=== PATIENT | male | born 1970 | race Caucasian/White ===

== ENCOUNTER → 2024-06-05 | Outpatient (CLI) | payer BC ==
[2024-06-05 13:13] LABS: BILIRUBIN,TOTAL 0.8 mg/dL (0.2-1.0); POTASSIUM 4.3 mmol/L (3.5-5.1); TOTAL PROTEIN, SERUM 7.5 g/dL (6.0-8.3)
== END | disposition home or self-care (01) ==
LOC: LAB 09:17
PROVIDERS: ATTEND Student in an Organized Health Care Education/Training Program
DX: I50.22 Chronic systolic (congestive) heart failure (principal); E78.5 Hyperlipidemia, unspecified
CPT/HCPCS: 36415; 80053

== ENCOUNTER 2025-01-20 16:35 | Observation (INO) | payer BC ==
[~2025-01-20] VITALS: Ht 170.2 cm; Wt 120.1 kg
--- NOTE | 2025-01-20 16:51 | ERN ---
ED Note History of Present Illness Stated Complaint: DIZZINESS Chief Complaint: Dizzy/Light Headed Time Seen by MD: 16:37 Dictation: IS A 54-YEAR-OLD MALE STATES HE WAS SITTING IN THE RECLINING CHAIR WITH HIS AND FAMILY EARLIER TODAY WHEN HE HAD A SUDDEN EPISODE OF SYNCOPE. HE STATES HE REMEMBERS THAT THE ROOM STARTED GOING DARK AND HE DOES NOT REMEMBER ANYTHING ELSE. THE STATES HE WAS SITTING IN THE RECLINER WHEN HE ROLLED HIS ICE BACK AND FELL BACK IN THE CHAIR FOR A FEW SEC. BOTH STATE THAT THEY THINK HIS DEFIBRILLATOR WENT OFF AND PATIENT HAD SPONTANEOUS ROS. CURRENTLY ALERT AND ORIENTED X4 SPEECH IS CLEAR. STATES HE HAS A PATIENT DR. ALANNAH HERNANDEZ. STATES HE HAS A AN EJECTION FRACTION OF [id number] AND 20%. NIH IS 0 AT THIS TIME. Allergies: Coded Allergies: No Known Allergies (Unverified Allergy, Unknown, 01/20/25) Past Medical History Past Medical History: High Cholesterol, Hypertension Surgical History: Other RN Note Reviewed/Agreed w/PFSH: Yes Review of System Dictation CONSTITUTIONAL: NEGATIVE EXCEPT FOR HPI HEAD/FACE: NEGATIVE EXCEPT FOR HPI EENT: NEGATIVE EXCEPT FOR HPI RESPIRATORY: NEGATIVE EXCEPT FOR HPI GASTROINTESTINAL/ABDOMINAL: NEGATIVE EXCEPT FOR HPI GENITOURINARY: NEGATIVE EXCEPT FOR HPI MUSCULOSKELETAL: NEGATIVE EXCEPT FOR HPI INTEGUMENTARY: NEGATIVE EXCEPT FOR HPI NEUROLOGICAL/PSYCH: NEGATIVE EXCEPT FOR HPI SYNCOPE HEMATOLOGIC/LYMPHATIC: NEGATIVE EXCEPT FOR HPI ALL SYSTEMS NEGATIVE, EXCEPT NOTED ABOVE. 13 POINT REVIEW OF SYSTEMS ASSESSED AND ALL NEGATIVE EXCEPT FOR ABOVE. Initial Vital Sign VS Vital Signs Date Time Temp Pulse Resp B/P (MAP) Pulse Ox O2 Delivery O2 Flow Rate FiO2 01/20/25 16:36 99.0 72 18 114/49 99 Room Air 01/20/25 18:00 0 21 Physical Exam Dictation VITAL SIGNS REVIEWED GENERAL APPEARANCE: ALERT, ORIENTED X 3, NO ACUTE DISTRESS, WELL DEVELOPED, NOURISHED. HEAD AND FACE: NON-TRAUMATIC. EYES: PERRL, PINK CONJUNCTIVAS, EYELID NO TRAUMA, ANTERIOR CHAMBER WITH ARCUS SENILIS. EARS: PINNAS INTACT AND NO SIGNS OF TRAUMA OR ERYTHEMA EAR CANALS CLEAR AND NO DISCHARGE TM NO ERYTHEMA NOSE: NO DISCHARGE, NO BLEEDING. OROPHARYNX: MOUTH NORMAL, TONGUE PINK, PHARYNX CLEAR,NO ERYTHEMA, TONSILS NO EXUDATES, NO ABSCESSES NOTED, MUCOUS MEMBRANE MOIST NECK: SUPPLE, NON-TENDER, NO THYROMEGALY, NO MASSES, NO JVD, NO BRUITS BREAST:DEFERRED CHEST:NO TENDERNESS, NO CREPITUS, NO PARADOXICAL MOVEMENT, NO RETRACTIONS LUNGS:CLEAR, WELL-VENTILATED, SYMMETRIC, NO RALES, NO WHEEZING, NO RHONCHI, NO STRIDOR, GOOD BREATH SOUNDS BILATERALLY HEART: REGULAR RATE, REGULAR RHYTHM, NO MURMUR, NO GALLOPS VASCULAR: TRACE PERIPHERAL EDEMA, ABDOMEN: SOFT, POSITIVE BOWEL SOUNDS, NONDISTENDED, NO GUARDING, NONTENDER, NO REBOUND, NO MASSES NO HEPATOMEGALY, NO SPLENOMEGALY, NO ALVAREZ'S SIGN, NO HERNIAS. RECTAL: DEFERRED GENITAL: DEFERRED NEUROLOGICAL: NORMAL SPEECH, MOTOR FUNCTION INTACT, SENSORY FUNCTION INTACT NIH IS 0 MUSCULOSKELETAL: NECK NONTENDER, FULL RANGE OF MOTION, BACK NONTENDER, FULL RANGE OF MOTION, EXTREMITIES: NONTENDER, FULL RANGE OF MOTION SKIN: COLOR PINK, DRY, NO TURGOR, NO RASH, NO LACERATIONS, NO ABRASIONS, NO CONTUSIONS. LYMPHATIC: DEFERRED Results (Laboratory/Radiology) Laboratory/Radiology Laboratory Tests Test 01/20/25 17:34 White Blood Count 8.4 K/uL (4.8-10.8) Red Blood Count 5.01 MIL/uL (4.50-6.20) Hemoglobin 14.9 g/dL (14.0-18.0) Hematocrit 46.0 % (42-54) Mean Corpuscular Volume 91.8 fL (79-99) Mean Corpuscular Hemoglobin 29.7 pg (27.0-33.0) Mean Corpuscular Hemoglobin Concent 32.4 g/dL (32.0-36.0) Red Cell Distribution Width 13.3 % (11.0-15.5) Platelet Count 199 K/uL (130-400) Mean Platelet Volume 10.0 fL (7.5-10.5) Immature Granulocyte % (Auto) 0.1 % (0-1) Neutrophils (%) (Auto) 81.0 % (40.0-77.0) H Lymphocytes (%) (Auto) 11.3 % (21.0-51.0) L Monocytes (%) (Auto) 6.9 % (3.0-13.0) Eosinophils (%) (Auto) 0.2 % (0.0-8.0) Basophils (%) (Auto) 0.5 % (0.0-5.0) Neutrophils # (Auto) 6.8 K/uL (1.8-7.7) Lymphocytes # (Auto) 1.0 K/uL (1.0-4.8) Monocytes # (Auto) 0.6 K/uL (0.1-1.0) Eosinophils # (Auto) 0.02 K/uL (0.00-0.70) Basophils # (Auto) 0.04 K/uL (0.00-0.20) Absolute Immature Granulocyte (auto 0.01 K/uL (0-1) Nucleated Red Blood Cells 0.0 % (0.0-0.19) Sodium Level 137 mmol/L (136-145) Potassium Level 3.9 mmol/L (3.5-5.1) Chloride Level 102 mmol/L (101-111) Carbon Dioxide Level 24 mmol/L (21-32) Blood Urea Nitrogen 17 mg/dL (7-18) Creatinine 0.7 mg/dL (0.5-1.3) Glomerular Filtration Rate Calc 108 mL/min (>90) Random Glucose 95 mg/dL (70-105) Total Calcium 9.0 mg/dL (8.5-10.1) Magnesium Level 2.30 mg/dL (1.80-2.40) Troponin I High Sensitivity 24 ng/L (4-75) B-Type Natriuretic Peptide 717 pg/mL (0-100) H Labs Reviewed?: Yes EKG Comment: 1650/EKG sinus rhythm with first-degree AV block/heart rate 63/left atrial enlargement/left ventricular conduction delay in multiple leads ED Course ED Course Orders Procedure Category Date Status Time B-Type Natriuretic LAB 01/20/25 Complete Peptide 16:42 Cbc With Differential LAB 01/20/25 Complete 16:42 Chest 1vw RAD 01/20/25 Resulted 16:42 12 Lead Ekg Tracing- EKG 01/20/25 Logged Technical 16:42 Magnesium LAB 01/20/25 Complete 16:42 Troponin I High LAB 01/20/25 Complete Sensitivity 16:42 Basic Metabolic Panel LAB 01/20/25 Complete 16:42 Pacemaker CPOE 01/20/25 Transmitted Interrogation (Er) 16:42 Cardiology Consult CONPHYSVC 01/20/25 Transmitted 21:39 Admit Orders ADM 01/20/25 Transmitted 21:39 Vital Signs Date Time Temp Pulse Resp B/P (MAP) Pulse Ox O2 Delivery O2 Flow Rate FiO2 01/20/25 21:11 57 16 110/52 96 Room Air* 0 21 01/20/25 19:56 62 18 107/51 96 Room Air* 0 21 01/20/25 18:00 97.9 62 12 109/61 96 Room Air* 0 21 01/20/25 16:36 99.0 72 18 114/49 99 Room Air 1858/SPOKE WITH PATIENT IN HIS AT LENGTH REGARDING CLINICAL FINDINGS TO DATE. THEY ARE BOTH AWARE THAT PATIENT'S DEFIBRILLATOR HAS BEEN INTERROGATED IN HIS SHOWED SEVERAL EVENTS WE WILL BE IN TOUCH WITH [employer] BILLING ANALYST FOR TIMES AND DATES. THEY BOTH FELT THAT THEY DID NOT NEED A CT OF THE HEAD AT THIS TIME BECAUSE THEY THOUGHT IT WAS A MONEY GRAB. I ADVISED BOTH OF THEM THAT WITH THE LOSS OF CONSCIOUSNESS AND THE NEUROLOGIC/CARDIAC EVENT THAT OCCURRED WITHOUT A MONITOR THAT I COULD NOT EXPLAIN WHAT IT HAPPENED TM AT THE TIME HE HAD THE SYNCOPAL EPISODE AND LOSS OF CONSCIOUSNESS. PATIENT STATES HE DOES NOT WANT A CT AT THIS TIME UNLESS IN HIS INDICATED BY HIS [employer]EN[employer] POLISHER'S. I ADVISED HIM THAT WE WOULD WAIT UNTIL THE INTERROGATION WAS COMPLETE AND THE REPORT RETURNED FROM [employer] PATIENT REMAINS ALERT AND ORIENTED X4 SPEECH IS CLEAR. NIH IS 0. 1955/CALLED AND SPOKE WITH THE [employer] CALL CENTER AT 18:00 [phone] LEFT MESSAGE TO HAVE COMMUNICATIONS BILLING ANALYST CALL BACK REGARDING THE REPORT FROM THE INTERROGATION. 1957/SPOKE WITH PAU BOWEN/[employer] AND HE IS ABOUT 5-7 MINUTES AWAY FROM THE HOSPITAL AND WE WILL STOP INTO SEE PATIENT. 8:00 p.m. patient was signed out to me by mid-level provider-Yusef This is a 54-year-old male with a dilated cardiomyopathy ejection fraction of 15-20% status post AICD followed by Dr. Alannah hernandez marketing summer intern, presented to the emergency room with his with a transient episode of syncope without warning and the AICD shocked him with a quick recovery. By the time the patient came to the ER his vital signs were stable he was alert awake and oriented x4. Patient and spouse stated that his coronaries were normal and his cardiomyopathy was felt to be perhaps related to chronic hypoxemia and untreated JIMY[facility] rep has a interrogated his AICD and there was an evidence of episode of ventricular fibrillation and the AICD appropriately shocked him with the return of normal rhythm. I discussed with the Dr. Alvarado and she recommended antiarrhythmic. In review of patient's medications patient is already on metoprolol. And I had a long discussion with the patient and his and probably his medications needing to be adjusted by marketing summer intern and they agreed to admission to the hospital As the patient has already taken his metoprolol today, and his EKG shows first- degree heart block as well as intraventricular conduction delay and an extremely low voltage EKG {I do not have any old EKG to compare at this time}, if he has any recurrence tonight, reasonable to give him a dose of amiodarone. Patient accepted by Danielito Briones, mid-level provider for hospitalist group for admission and further management Extensive counseling done on 3. Compliance with home oxygen and BiPAP, sleep hygiene discussed avoidance of benzodiazepines and other sleep aids that would suppress respirations. The importance of compliance with PAP therapy and benefits of improved sleep consolidation quality of sleep, reducing the risks of stroke cardiac disease and comorbidities. Negative consequences also discussed. 4. Weight loss diet and exercise -as per cardiology recommendations; stressed and education done. 5. Smoking cessation and toxic effects of tobacco and complications associated with worsening lung disease, incidents of lung cancer and other cancers cardiac arrest and . 6. Stop alcohol and resources for withdrawal and abstinence with addiction medicine offered. 7. Regular followups. HEART Score Response (Comments) Value EKG: Repolarization changes 1 Age: 45-65yrs (+1) 1 Risk Factors: 3+ risk factors (+2) 2 Initial Troponin: Normal limit (0) 0 Total 4 Medical Decision Making MDM Differential diagnosis: Ventricular tachycardia, ventricular fibrillation, appropriate AICD shock versus inappropriate AICD shock, new coronary event, congestive heart failure decompensated Rationale: Tests considered and ordered secondary to shared decision making include: labs, ECG and radiology Previous outside records reviewed: Old ER visits. Risk of complication and/or morbidity or mortality of patient management: None Medications-Per medication reconciliation Need for hospitalization: Patient does meet criteria for hospitalization. Need for emergency major/minor surgery: No There are no social concerns with this patient. Prescription drug management Prescriptions will include symptomatic care Patient's prior external medical records from other ER visits were reviewed by me as indicated. Prior testing and results from previous visits were reviewed. Prior tests were taken into account with medical decision making and resource utilization, independent historian/historians were used to obtain complete medical history. I independently interpreted the test that were performed, results were reviewed by me and considered findings on radiology if ordered. Medical management and examination interpretation discussions were had by me with other qualified healthcare professionals as indicated for the patient's care. DX & DISP Disposition: Inpatient Departure Impression: Primary Impression: Ventricular fibrillation Additional Impressions: AICD (automatic cardioverter/defibrillator) present, Syncope, Idiopathic cardiomyopathy, Obstructive sleep apnea not treated with continuous positive airway pressure (CPAP), Non-compliance Condition: Stable Additional Instructions: Patient was informed of all the diagnostic labs and procedures conducted in the emergency room today and demonstrated understanding of the results. I personally reviewed and interpreted all the diagnostic exams performed in the ER today. The patient will be admitted to the hospital for further treatment and evaluation. Disposition-admit to facility Condition-stable/guarded Course-uncertain at this time Pain status-decreased Assessment-exam unchanged Admission Certification- I certify that the patients status is appropriate and is based on my best clinical judgment and the patient's condition as documented in the medical records Referrals: ALANNAH RAMIREZ MD (PCP) YUSEF FARRAR Jan 20, 2025 16:51 LILY CRUZ MD Jan 20, 2025 22:12
[2025-01-20 17:44] LABS: IMMATURE GRANULOCYTE ABSOLUTE 0.01 K/uL (0-1); NUCLEATED RED BLOOD CELLS 0.0 % (0.0-0.19); PLATELET COUNT (AUTO) 199 K/uL (130-400); RED BLOOD CELL COUNT(AUTO) 5.01 MIL/uL (4.50-6.20); RED CELL DISTRIBUTION WIDTH 13.3 % (11.0-15.5); WHITE BLOOD COUNT (AUTO) 8.4 K/uL (4.8-10.8)
[2025-01-20 18:08] LABS: CREATININE 0.7 mg/dL (0.5-1.3); GLOMERULAR FILTR. RATE CALC 108.0 mL/min (>90); GLUCOSE,RANDOM 95.0 mg/dL (70-105); SODIUM SERUM 137.0 mmol/L (136-145); UREA NITROGEN, BLOOD 17.0 mg/dL (7-18)
--- NOTE | 2025-01-20 18:30 | NUR ---
[employer] DEVICE INTEROGATED
--- NOTE | 2025-01-20 18:58 | HMCIMG ---
EXAM: CR Chest, 1 View. CLINICAL HISTORY: SHORTNESS A BREATH COMPARISON: None provided. FINDINGS: LUNGS: The lungs show no infiltrate or other acute finding. PLEURAL SPACES: No pleural effusion or pneumothorax. MEDIASTINUM: The cardiomediastinal silhouette is within normal limits. Pacemaker lead is in satisfactory position. BONES: No aggressive appearing osseous lesion seen. IMPRESSION: No acute cardiopulmonary pathology is evident. /[place]
--- NOTE | 2025-01-20 21:10 | NUR ---
MD and family at bedside.
--- NOTE | 2025-01-20 21:40 | HP ---
History of Present Illness Reason for Visit: dizziness History of Present Illness Mr. Cantu is a 54-year-old male that was seen and examined today on 01/20/2025. Patient is a good historian of personal health Patient reports that he came to the emergency department with a chief complaint of dizziness. Onset was today at 3:00 p.m.. Location is head. Duration is on and off. Patient reports one episode. Character is described as if everything was getting dark. There was no aggravating factors. Symptoms occurred while patient was sitting down in a chair. Symptoms were alleviated when getting shocked by his AICD. Patient denies any associated chest pain or shortness and breath. Today in the emergency department CBC unremarkable, chemistry unremarkable, BNP 717, no urinalysis has been collected or sent to lab, chest x-ray is unremarkable. Patient's device was interrogated by [employer] computer help desk representative who states that patient had a VFib episode which has since resolved after defibrillation. Emergency room physician contacted patient's butcher helper who recommended patient be admitted in the we will be following this case to adjust patient's home medications. Past Medical History ADDITIONAL PAST MEDICAL HISTORY: [CHF] SOCIAL HISTORY: [Negative for smoking, alcohol use, drug use. Patient lives with the , Nila Cantu. Patient is typically independent of his ADLs. Patient denies difficulty pain is bills] SURGICAL HISTORY: [Bilateral hip surgery, AICD, colon resection secondary to d iverticulitis] Review of Systems General: No Fever, No Chills, No Night Sweats, No Fatigue, No Malaise, No Appetite, No Other HEENT: No Head Aches, No Visual Changes, No Eye Pain, No Ear Pain, No Dys phasia, No Sinus Congestion, No Post Nasal Drip, No Sore Throat, No Other Pulmonary: No Dyspnea, No Cough, No Pleuritic Chest Pain, No Other Cardiovascular: Lt Headedness; No: Chest Pain, Palpitations, Orthopnea, Paroxysmal Noc. Dyspnea, Edema, Other Gastrointestinal: No: Nausea, Vomiting, Abdominal Pain, Diarrhea, Constipation, Melena, Hematochezia, Other Genitourinary: No Dysuria, No Frequency, No Incontinence, No Hematuria, No Retention, No Other Musculoskeletal: No: other, neck pain, shoulder pain, arm pain, back pain, hand pain, leg pain, foot pain Skin: No Urticaria, No Rash, No Other Neurological: No: Weakness, Numbness, Incoordination, Change in speech, Confusion, Seizures, Other Allergies: Coded Allergies: No Known Allergies (Unverified Allergy, Unknown, 01/20/25) Scheduled Aspirin (Aspirin 81MG Chew Tab), 1 TAB PO DAILY, (Reported) Atorvastatin Calcium (Atorvastatin Calcium), 1 TAB PO HS, (Reported) Dronedarone Hydrochloride (Multaq), 1 TAB PO BID, (Reported) Empagliflozin (Jardiance), 1 TAB PO DAILY, (Reported) Ezetimibe (Ezetimibe), 1 TAB PO DAILY, (Reported) Icosapent Ethyl (Vascepa), 2 CAP PO BID, (Reported) Metoprolol Succinate (Metoprolol Succinate), 1 TAB PO DAILY, (Reported) Sacubitril/Valsartan (Entresto 24 mg-26 mg Tablet), 1 TAB PO BID, (Reported) Spironolactone (Spironolactone), 1 TAB PO DAILY, (Reported) Ubidecarenone (Coq-10), 200 MG PO DAILY, (Reported) Vitamin B Complex (Vitamin B Complex), 1 CAP PO BID, (Reported) Exam Vital Signs Vital Signs Date Time Temp Pulse Resp B/P (MAP) Pulse Ox O2 Delivery O2 Flow Rate FiO2 01/20/25 21:11 57 16 110/52 96 Room Air* 0 21 01/20/25 18:00 97.9 General Appearance: Alert, Oriented X3, Cooperative, No acute distress HEENT: Atraumatic, EOMI Respiratory: Clear to auscultation, Normal air movement, NL respiratory effort Cardiovascular: Normal S1, Normal S2, Other (S3) Abdominal: No tenderness Extremities: No clubbing, No cyanosis, No edema Skin: No rashes, No breakdown, No significant lesion Neuro: Normal gait, Normal speech, Strength at 5/5 X4 ext, Sensation intact, Cranial nerves 3-12 NL Psych/Mental Status: Mental status NL, Mood NL, Thoughts/Content NL Assessment/Plan ASSESSMENT: [ VFib episode, POA CHF with stated EF of 20%, POA PLAN: [ Admit patient to pccu as inpatient status. Place patient on telemetry monitoring. Patient will be followed by cardiology service. For now we will be starting metoprolol 12.5 mg by mouth twice daily Administer metoprolol 5 mg IV every 5 minutes as needed for AFib RVR with heart rate greater than 120 beats per minute max three doses. Monitor intake and output every shift Weight patient daily 1500 mL daily fluid restriction Lasix 20 mg by mouth twice daily Consider resuming home medications once they have been reconciled. GI prophylaxis, famotidine DVT prophylaxis, Lovenox ADVANCED CARE PLANNING 1. Which of the following were discussed? Hospice Care - Yes Therapeutic options - yes Advance Directives - Yes - patient states he does not have any advance directives in place at this time, however his can make decisions for him if he becomes unable. Other discussions - patient wishes to remain a full code at this time 2. Discussed with who? Patient 3. Voluntary nature of this service was explained to the patient? Yes 4. Amount of time spent - ___16 minutes____ 5. Reviewed by Physician? (if this service was performed by NPP) Yes This document was generated in part using voice recognition software, occasional wrong word or sound alike substitutions may have occurred due to the inherent limitations of voice recognition software. Read the chart carefully and recognize using context, where the substitutions have occurred. Although every effort was made to edit the content, slag motor operator and typing errors may occur ATTESTATION BY PHYSICIAN I have seen and examined the patient. I reviewed the documentation, medical decision making, and treatment plan as noted by the mid-level provider above. I agree with the findings and plan of care. ] ELI PEREZ [facility] Jan 20, 2025 21:40
[2025-01-20] MEDS ORDERED: PHARMACY COMMUNICATION MISC SCH (22:30)
[2025-01-20] MEDS ORDERED: LACTULOSE 20 GM/30 ML UDCUP PO PRN (22:30)
[2025-01-20 23:58] LABS: APPEARANCE,URINE CLEAR (CLEAR); GLUCOSE, URINE (UA) >=1000 mg/dL (NEGATIVE); LEUKOCYTE ESTERASE ,URINE NEGATIVE Leu/uL (NEGATIVE); NITRATE,URINE NEGATIVE (NEGATIVE); OCCULT BLOOD,URINE NEGATIVE (NEGATIVE)
[2025-01-20 23:59] LABS: ADD UA MICROSCOPIC YES
[2025-01-21] VITALS (7 sets, daily range): BP systolic 93–161; BP diastolic 44–98; PULSE 56–77; RESP 18–21; TEMP 97.7–98.5; O2SAT 96
[2025-01-21] MEDS ORDERED: SACU1TAB PO (00:07)
[2025-01-21] MEDS ORDERED: EZET10TA80 PO (00:07)
[2025-01-21] MEDS ORDERED: ASPI-1005 PO (00:07)
[2025-01-21] MEDS ORDERED: EMPA10TA PO (00:07)
[2025-01-21] MEDS ORDERED: VITA1CAP85 PO (00:07)
[2025-01-21] MEDS ORDERED: METO-391 PO (00:07)
[2025-01-21] MEDS ORDERED: SPIR25TA6 PO (00:07)
[2025-01-21] MEDS ORDERED: UBID100C51 PO (00:07)
[2025-01-21] MEDS ORDERED: ATOR40TA71 PO (00:07)
[2025-01-21] MEDS ORDERED: ICOS1CAP PO (00:07)
[2025-01-21] MEDS ORDERED: DRON400T7 PO (00:07)
[2025-01-21] MEDS: SACUBITRIL/VALSARTAN 1 EACH TABLET PO ONE (01:38)
[2025-01-21] MEDS: DRONEDARONE HYDROCHLORIDE 400 MG TABLET PO ONE (01:39)
[2025-01-21] MEDS ORDERED: [UNRECOGNIZED DRUG - OTHER] IM ONE (03:30)
--- NOTE | 2025-01-21 03:36 | NUR ---
Flu Vaccine Patient request vaccine to be administered after breakfast, patient education hand out left with patient. Patient has no questions at this time.
[2025-01-21 08:12] LABS: IMMATURE GRANULOCYTE ABSOLUTE 0.02 K/uL (0-1); NUCLEATED RED BLOOD CELLS 0.0 % (0.0-0.19); PLATELET COUNT (AUTO) 210 K/uL (130-400); RED BLOOD CELL COUNT(AUTO) 5.11 MIL/uL (4.50-6.20); RED CELL DISTRIBUTION WIDTH 13.7 % (11.0-15.5); WHITE BLOOD COUNT (AUTO) 6.3 K/uL (4.8-10.8)
[2025-01-21 08:23] LABS: CREATININE 0.7 mg/dL (0.5-1.3); GLOMERULAR FILTR. RATE CALC 108.0 mL/min (>90); GLUCOSE,RANDOM 94.0 mg/dL (70-105); PHOSPHORUS 4.8 mg/dL (2.5-4.9); SODIUM SERUM 137.0 mmol/L (136-145); UREA NITROGEN, BLOOD 12.0 mg/dL (7-18)
[2025-01-21] MEDS: ENOXAPARIN SODIUM 40 MG/0.4 ML SYRINGE SQ SCH (09:23)
[2025-01-21] MEDS: SACUBITRIL/VALSARTAN 1 EACH TABLET PO SCH (09:23)
[2025-01-21] MEDS: SPIRONOLACTONE 25 MG TAB PO SCH (09:24)
[2025-01-21] MEDS: FAMOTIDINE 20MG TAB PO SCH (09:24)
--- NOTE | 2025-01-21 12:42 | PN ---
[facility] PROGRESS NOTE Date of Service: Jan 21, 2025 Time of Service: 12:42 SUBJECTIVE: [ ] 01/21/2025: The patient was seen and evaluated bedside along with Dr. Pal and Dr. Rodriguez this morning. The patient is awake, alert, oriented x3, saturating 99% at room air. The patient said that he had episode of syncope yesterday for about a minute. Yesterday in ED, the device was interrogated by [employer] software support representative who stated that patient had a VFib episode getting shocked by his AICD. ED physician contacted patient's car manager who recommended patient be admitted for further evaluation. The patient said he is doing good this morning, denies chest pain, shortness of breath, palpitation, dizziness overnight. Morning labs were unremarkable except for elevated BNP 717. Plan of care was discussed with his over phone in presence of patient by Dr. Rodriguez for which patient and his agreed. We will plan for discharge after getting clearance from Cardiology. Nurse called around 6:30 p.m. on 01/21/2025 and informed that patient wants to leave against medical advice. Patient signed out against medical advice from the room. As per the primary nurse, the patient does not wish to continue any treatment at this time and is refusing to stay and complete evaluation and disposition. The patient is fully aware of all risks and benefits of leaving against medical advice. Possible benefits include correction of the current medical condition and improvement of symptoms. However the patient was advised that possible risk of leaving against medical advice include worsening of the current medical condition, including or causing that. The Patient verbalized understanding of the risk and benefits discussed. Despite this the patient signed out against medical advice. REVIEW OF SYSTEMS CONSTITUTIONAL: Denies fevers, chills, or night sweats. No unintentional weight loss reported. NEUROLOGICAL: Denies headache, amaurosis fugax, motor weakness, sensory deficit, vertigo/spinning sensation, gait abnormalities, or tremors. ENT: No hearing loss, otalgia, otorrhea, rhinitis, rhinorrhea, hoarseness, or sore throat. CARDIOVASCULAR: Denies any exertional angina, dyspnea on exertion, orthopnea, paroxysmal nocturnal dyspnea, palpitations, life-threatening arrhythmias, claudication. PULMONARY: Denies any shortness of breath, cough, phlegm/sputum, hemoptysis, pleuritic chest pain. SLEEP: Denies morning headaches, daytime somnolence or napping. Denies difficulty falling asleep, staying asleep, waking from sleep. Denies knowledge of snoring. GASTROINTESTINAL: Denies any type of dysphagia to either liquids or solids. Denies nausea, vomiting, pyrosis, early satiety, abdominal pain, diarrhea, constipation, or changes in stool consistency or caliber. Denies coffee-ground emesis, hematemesis, hematochezia, or melanotic stools. GENITOURINARY: Denies frequency, urgency, nocturia, hematuria or incontinence (Storage/Irritative symptoms.) Low urinary stream, straining to void, urinary intermittency or hesitancy, splitting of the voiding stream, terminal dribbling. ENDOCRINOLOGIC: Denies polyuria, polydipsia, polyphagia or heat/cold intolerances. HEMATOLOGIC: Denies thrombophilia/previous clots, or coagulopathy/bleeding disorders. ONCOLOGIC: Denies personal history of malignancy. DERMATOLOGIC: Denies rashes or pruritus. PSYCHIATRIC: Denies any suicidal or homicidal ideation. Denies hallucinations. PHYSICAL EXAM GENERAL APPEARANCE: The patient is awake, alert, and oriented, in no acute cardiopulmonary distress. NEUROLOGICAL: Cranial nerves II-XII grossly intact. Motor is 5/5 in bilateral upper and lower extremities proximal to distal. No sensory deficits. HEENT: Face is symmetric. Pupils are equal and reactive. Extraocular movements are intact. NECK: Supple. No JVD. No thyromegaly. No submental, submandibular, pre- /postauricular, occipital or supraclavicular lymphadenopathy. CHEST: Normal chest expansion. No Telemetry. LUNGS: Absence of any rales, rhonchi or any wheezing. CARDIOVASCULAR: Regular. S1 and S2 normal. No appreciable rubs, murmurs or gallops. ABDOMEN: Soft, nontender, and nondistended. There is no rebound, voluntary guarding, or rigidity. : Deferred. No Rosa. EXTREMITIES: Non-edematous and not cyanotic. No clubbing. Good capillary refill. SKIN: No skin breakdown. Vital Signs (last 8hr) Date Time Temp Pulse Resp B/P (MAP) Pulse Ox O2 Delivery O2 Flow Rate FiO2 01/21/25 12:13 98.4 60 18 101/55 95 Room Air 01/21/25 08:00 96 Room Air* 0 21 01/21/25 07:56 98.2 56 18 93/54 99 Room Air LABS: Laboratory: Test 01/21/25 07:41 01/20/25 23:35 01/20/25 17:34 Range/Units White Blood Count 6.3 4.8-10.8 K/uL Red Blood Count 5.11 4.50-6.20 MIL/uL Hemoglobin 15.0 14.0-18.0 g/dL Hematocrit 47.2 42-54 % Mean Corpuscular Volume 92.4 79-99 fL Mean Corpuscular Hemoglobin 29.4 27.0-33.0 pg Mean Corpuscular Hemoglobin Concent 31.8 L 32.0-36.0 g/dL Red Cell Distribution Width 13.7 11.0-15.5 % Platelet Count 210 130-400 K/uL Mean Platelet Volume 10.2 7.5-10.5 fL Immature Granulocyte % (Auto) 0.3 0-1 % Neutrophils (%) (Auto) 69.7 40.0-77.0 % Lymphocytes (%) (Auto) 19.5 L 21.0-51.0 % Monocytes (%) (Auto) 9.2 3.0-13.0 % Eosinophils (%) (Auto) 0.8 0.0-8.0 % Basophils (%) (Auto) 0.5 0.0-5.0 % Neutrophils # (Auto) 4.4 1.8-7.7 K/uL Lymphocytes # (Auto) 1.2 1.0-4.8 K/uL Monocytes # (Auto) 0.6 0.1-1.0 K/uL Eosinophils # (Auto) 0.05 0.00-0.70 K/uL Basophils # (Auto) 0.03 0.00-0.20 K/uL Absolute Immature Granulocyte (auto 0.02 0-1 K/uL Nucleated Red Blood Cells 0.0 0.0-0.19 % Sodium Level 137 136-145 mmol/L Potassium Level 4.6 3.5-5.1 mmol/L Chloride Level 100 L 101-111 mmol/L Carbon Dioxide Level 29 21-32 mmol/L Blood Urea Nitrogen 12 7-18 mg/dL Creatinine 0.7 0.5-1.3 mg/dL Glomerular Filtration Rate Calc 108 >90 mL/min Random Glucose 94 70-105 mg/dL Total Calcium 9.1 8.5-10.1 mg/dL Phosphorus Level 4.8 2.5-4.9 mg/dL Magnesium Level 2.20 1.80-2.40 mg/dL Urine Color YELLOW YELLOW Urine Appearance CLEAR CLEAR Urine pH 5.5 5.0-8.0 Urine Specific [place] 1.034 H 1.001-1.031 Urine Protein NEGATIVE NEGATIVE mg/dL Urine Glucose (UA) >=1000 H NEGATIVE mg/dL Urine Ketones 5 H NEGATIVE mg/dL Urine Occult Blood NEGATIVE NEGATIVE Urine Nitrate NEGATIVE NEGATIVE Urine Bilirubin NEGATIVE NEGATIVE mg/dL Urine Urobilinogen 0.2 0.2-1.0 mg/dL Urine Leukocyte Esterase NEGATIVE NEGATIVE Carole/uL Urine RBC 2-5 H 0-1 /HPF Urine WBC 0-1 0-1 /HPF Urine Bacteria RARE None Seen /HPF Troponin I High Sensitivity 24 4-75 ng/L B-Type Natriuretic Peptide 717 H 0-100 pg/mL Current Medications Medications (Trade) Dose Ordered Sig/Carol Route PRN Reason Start Time Stop Time Status Last Admin Dose Admin Acetaminophen (TYLenol 325MG TAB) 650 mg Q6H PRN PO TEMPERATURE GREATER THAN 101.5 01/20/25 22:30 02/19/25 22:29 Atorvastatin Calcium (LIPItor 40MG) 40 mg HS PO 01/21/25 21:00 01/21/25 02:03 DC Enoxaparin Sodium (Lovenox) 40 mg DAILY SQ 01/21/25 09:00 02/20/25 08:59 01/21/25 09:23 40 MG Famotidine (Pepcid 20mg Tab) 20 mg DAILY PO 01/21/25 09:00 02/20/25 08:59 01/21/25 09:24 20 MG Furosemide (LASix 20MG TAB) 20 mg BID@,17 PO 01/21/25 09:00 01/21/25 02:04 DC Hydralazine HCl (APRESOLine 20MG INJ) 10 mg Q6H PRN IV For:SBP above 160;DBP above 90 01/20/25 22:30 02/19/25 22:29 Lactulose (Constulose 20gm/ 30ml Udcup) 20 gm BID PRN PO CONSTIPATION 01/20/25 22:30 02/19/25 22:29 Metoprolol Succinate (TopROL XL) 50 mg DAILY PO 01/21/25 09:00 02/20/25 08:59 01/21/25 09:23 50 MG Metoprolol Tartrate (loprESSOR) 5 mg Q5MIN PRN IV AFIB RVR WITH HR >120BPM 01/20/25 22:30 Metoprolol Tartrate (loprESSOR) 12.5 mg BID PO 01/21/25 09:00 01/21/25 01:38 DC Morphine Sulfate (morPHINE 2MG SYG) 2 mg Q4H PRN IVP SEVERE PAIN (7-10) 01/20/25 22:30 01/27/25 22:29 Ondansetron HCl (zoFRAN 4MG INJ) 4 mg Q6H PRN IV NAUSEA/VOMITING 01/20/25 22:30 02/19/25 22:29 Pharmacy Profile Note (Pharmacy Communication) 1 each ONCE MISC 01/20/25 22:30 01/20/25 22:27 DC Sacubitril/ Valsartan (Entresto 24 Mg-26 Mg Tablet) 1 each BID PO 01/21/25 09:00 02/20/25 08:59 01/21/25 09:23 1 EACH Spironolactone (Aldactone 25mg) 25 mg DAILY PO 01/21/25 09:00 02/20/25 08:59 01/21/25 09:24 25 MG DIAGNOSTICS / RADIOLOGY: [ ] [place] [address] IMAGING REPORT Signed PATIENT: CECILIA MENENDEZ MR#: [id number] : 1970 SEX: M AGE: 54 LOCATION: [facility] ORDER 43 STATUS: REG REPORT#: [id number] SERVICE 41 REASON: SHORTNESS A BREATH ORDERING PHYSICIAN: YUSEF FARRAR PROCEDURE: CXR1VW - CHEST 1VW EXAM: CR Chest, 1 View. CLINICAL HISTORY: SHORTNESS A BREATH COMPARISON: None provided. FINDINGS: LUNGS: The lungs show no infiltrate or other acute finding. PLEURAL SPACES: No pleural effusion or pneumothorax. MEDIASTINUM: The cardiomediastinal silhouette is within normal limits. Pacemaker lead is in satisfactory position. BONES: No aggressive appearing osseous lesion seen. IMPRESSION: No acute cardiopulmonary pathology is evident. /[place] DICTATED BY: ZANE MEHTA Jr., MD DATE: 01/20/251956 ELECTRONICALLY SIGNED BY: ZANE MHETA Jr., MD DATE: 01/20/251956 ASSESSMENT: VFib episode, POA CHF with stated EF of 20%, POA JIMY on CPAP at home POA PLAN: VFib episode, POA Patient had episode of Vfib as reported by [employer] software support representative after interrogating AICD device Patient got shocked by AICD which led to resolution of VFib Patient placed on telemetry monitoring Patient did not have another episode of VFib overnight Cardiology was consulted for further evaluation. CHF with stated EF of 20%, POA Patient stated that he had congestive heart failure with low ejection fraction of 20% BNP on presentation was 717 Patient was started on his home medications [id number] mg, metoprolol 50 mg, sacubitril valsartan b.i.d. Pending 2D echocardiogram Patient count 1.5 L fluid restriction We will trend BNP, strict I&O Cardiology on board, we will follow the recommendations GI prophylaxis with Pepcid 20 mg p.o. daily DVT prophylaxis with Lovenox 40 mg SQ daily ATTESTATION BY PHYSICIAN I have seen and examined the patient. I reviewed the documentation, medical decision making, and treatment plan as noted by the resident provider above. I agree with the findings and plan of care. Vincent Rodriguez MD, ADIL SHAH QUADRI MD Jan 21, 2025 12:42
--- NOTE | 2025-01-21 13:09 | EKG ---
[facility] Test Date: 2025-01-20 Test Time: 16:50:17 Pat Name: CECILIA MENENDEZ Department: 2A Room: 231 1 Gender: M Program And Research Coordinator: [id number] : 1970 Requested By: YUSEF FARRAR Order Number: [id number] Reading MD: Rebeca Alvarado Measurements Intervals Barron Rate: 63 P: 58 WV: 235 QRS: -58 QRSD: 139 T: 98 QT: 458 QTc: 468 Interpretive Statements Sinus rhythm Prolonged WV interval Probable left atrial enlargement Nonspecific IVCD with LAD Anterior infarct, old No previous ECG available for comparison Electronically Signed On 01-21-2025 13:46:25 [employer] GRINDER OPERATOR by Rebeca Alvarado Please click the below link to view image of tracing.
--- NOTE | 2025-01-21 17:11 | NUR ---
DR DIAZ MADE AWARE OF CONSULT. WAS NOT NOTIFIED OF PATIENTS STATUS. IMFORMED PATTIENT HAS NOT RECEIVED AND SHOCKS FROM DEFIBRILATOR.
--- NOTE | 2025-01-21 18:02 | NUR ---
PATIENT HAD IV REMOVED. STATES " I AM GOING HOME. I AM NOT SIGNING THE AMA FORM. I SHOULD HAVE NEVER BEEN ADMITTED IN THE FIRST PLACE."
== END 2025-01-21 18:11 | disposition left against medical advice (07) ==
LOC: EDH 16:35 → INTOOBSV 21:39 → EDHIP 21:39 → 2AH 23:04
PROVIDERS: ADMIT Internal Medicine; ATTEND Internal Medicine
DX: I49.01 Ventricular fibrillation (principal); I11.0 Hypertensive heart disease with heart failure; G47.33 Obstructive sleep apnea (adult) (pediatric); E78.00 Pure hypercholesterolemia, unspecified; R42 Dizziness and giddiness; R55 Syncope and collapse; Z79.899 Other long term (current) drug therapy; Z79.82 Long term (current) use of aspirin; Z95.810 Presence of automatic (implantable) cardiac defibrillator; Z98.890 Other specified postprocedural states
CPT/HCPCS: 99284; 83735 ×2; 84484; 80048 ×2; 83880; 85025 ×2; 81001; 36415 ×2; 71045; 93005; 96372; 84100; G0378 ×21; J1650; 99285